=== PATIENT | male | born 1985 | race Caucasian/White ===

== ENCOUNTER 2017-10-16 15:57 | Emergency (ER) | payer OTHER | END 2017-10-16 18:11 | disposition left against medical advice (07) | LOC: ED 15:57 | DX: Z53.21 Procedure and treatment not carried out due to patient leaving prior to being seen by health care provider (principal) ==

== ENCOUNTER 2018-11-05 04:36 | Emergency (ER) | payer OTHER ==
[~2018-11-05] VITALS: Ht 170.2 cm; Wt 108.9 kg
[2018-11-05 05:31] VITALS: BP 134/70
== END 2018-11-05 05:31 | disposition home or self-care (01) ==
LOC: ED 04:36
DX: J01.00 Acute maxillary sinusitis, unspecified (principal)

== ENCOUNTER 2018-11-06 20:42 | Emergency (ER) | payer OTHER ==
[~2018-11-06] VITALS: Ht 170.2 cm; Wt 109.8 kg
[2018-11-06 21:01] VITALS: Ht 170.2 cm; Wt 109.8 kg
[2018-11-07] VITALS: BP 127/84
== END 2018-11-07 | disposition home or self-care (01) ==
LOC: ED 20:42
DX: J32.0 Chronic maxillary sinusitis (principal)
CPT/HCPCS: J1885